=== PATIENT | male | born 1955 | race Caucasian/White ===

== ENCOUNTER 2022-07-07 01:06 | Emergency (ER) | payer MEDICARE ==
[~2022-07-07] VITALS: Ht 172.7 cm; Wt 79.4 kg
[2022-07-07] MEDS ORDERED: ASPIRIN 325 MG TAB PO ONE (02:30)
[2022-07-07] MEDS ORDERED: ACETAMINOPHEN 325 MG TAB ONE (02:40)
[2022-07-07] MEDS ORDERED: ACETAMINOPHEN 325 MG TAB PO ONE (03:15)
[2022-07-07] MEDS ORDERED: ASPIRIN 325 MG TAB ONE (03:19)
[2022-07-07 03:52] VITALS: BP 131/87
== END 2022-07-07 03:52 | disposition other institution (70) ==
LOC: FSED 01:29
DX: I69.354 Hemiplegia and hemiparesis following cerebral infarction affecting left non-dominant side (principal); R51.9 Headache, unspecified; E78.00 Pure hypercholesterolemia, unspecified; R94.31 Abnormal electrocardiogram [ECG] [EKG]; Z95.810 Presence of automatic (implantable) cardiac defibrillator
CPT/HCPCS: 70450; 71045; 80053; 82553; 84484; 85025; 85610; 93005; 99284